=== PATIENT | female | born 1980 | race Native Hawaiian/Other Pacific Islander ===

== ENCOUNTER → 2019-10-20 | Outpatient (CLI) | payer BC ==
[~2019-10-20] MED LIST: RT-ALBUTEROL SULF 2.5 MG/3 ML PRE-MIX VIAL INH ONE
== END ==
LOC: RT 10:15
PROVIDERS: ATTEND Student in an Organized Health Care Education/Training Program
DX: E88.01 Alpha-1-antitrypsin deficiency (principal)
CPT/HCPCS: 94060; 94726; 94729